=== PATIENT | male | born 1950 | race Hispanic/Latino ===

== ENCOUNTER 2018-07-13 22:10 | Observation (INO) | payer MEDICARE, OTHER ==
[2018-07-13] MEDS ORDERED: Morphine 4 mg/ml ISec IVP STA (22:36)
[2018-07-13] MEDS ORDERED: Sodium Chloride 0.9% 1,000 ML IV STA (22:36)
[2018-07-13] MEDS ORDERED: Pantoprazole 40 MG in Sodium Chloride 0.9% 100 ML IV STA (22:36)
--- NOTE | 2018-07-13 22:36 | ED PDOC ---
Arrival/HPI - General Chief Complaint: Abdominal Pain Time Seen by Provider: 07/13/18 22:20 Historian: Patient - History of Present Illness Narrative History of Present Illness (Text): 07/13/18 22:35 67 year old male, whose past medical history includes hypertension, presents to the emergency department complaining of epigastric pain that radiates down to lower abdomen and back. Patient reports no appetite, but denies any fever, chills, chest pain, shortness of breath, nausea, vomiting, diarrhea, urinary symptoms, neck pain, headache, dizziness, or any other complaints. PMD: Dr. Hill Symptom Onset: Gradual Symptom Course: Unchanged Activities at Onset: Light Context: Home Past Medical History - Provider Review Nursing Documentation Reviewed: Yes - Infectious Disease Hx of Infectious Diseases: None - Tetanus Immunization Tetanus Immunization: Unknown - Cardiac Hx Cardiac Disorders: Yes Hx Hypertension: Yes - Pulmonary Hx Respiratory Disorders: Yes Hx Pneumonia: Yes (11-19-15) - Neurological Hx Neurological Disorder: Yes (SYNCOPE) - HEENT Hx HEENT Disorder: (WEARS RX GLASSES) Other/Comment: DEVIATED SEPTUM WITH SURGERY.H/O ORBITAL FX RIGHT WITH WIRE - Musculoskeletal/Rheumatological Hx Falls: No Other/Comment: inflammation in hip and leg - Gastrointestinal Hx Gastrointestinal Disorders: Yes (CONSTIPATION) Other/Comment: Ileus-EXPLORATORY LAP HAD RUPTURED LOWER BOWEL ?,APPENDECTOMY, - Psychiatric Hx Substance Use: No - Surgical History Hx Appendectomy: Yes Other/Comment: hx of nasal , rt orbital fracture - Anesthesia Hx Anesthesia: Yes Hx Anesthesia Reactions: No Hx Malignant Hyperthermia: No - Suicidal Assessment Feels Threatened In Home Enviroment: No Family/Social History - Physician Review Nursing Documentation Reviewed: Yes Family/Social History: No Known Family HX Smoking Status: Current Some Days Smoker Hx Alcohol Use: Yes Frequency of alcohol use: Socially Hx Substance Use: No Hx Substance Use Treatment: No Allergies/Home Meds Allergies/Adverse Reactions: Allergies boswell Allergy (Verified 11/19/15 16:40) ANGIOEDEMA NECTARINE Allergy (Uncoded 11/19/15 16:39) ANGIOEDEMA Home Medications: Home Meds Medication Instructions Recorded Confirmed Losartan [Cozaar] 50 mg PO DAILY 07/13/18 07/13/18 Review of Systems - Physician Review All systems were reviewed & negative as marked: Yes - Review of Systems Constitutional: absent: Fevers, Other (Chills) Respiratory: absent: SOB Cardiovascular: absent: Chest Pain Gastrointestinal: Abdominal Pain, Appetite Changes. absent: Nausea, Vomiting Genitourinary Male: absent: Dysuria, Frequency, Hematuria Musculoskeletal: Back Pain. absent: Neck Pain Neurological: absent: Headache, Dizziness Physical Exam Vital Signs Reviewed: Yes Vital Signs Temp Pulse Resp BP Pulse Ox 07/13/18 22:14 98.5 F 112 H 19 165/92 H 98 Temperature: Afebrile Blood Pressure: Hypertensive Pulse: Tachycardic Respiratory Rate: Normal Appearance: Positive for: Well-Appearing, Non-Toxic, Comfortable Pain Distress: None Mental Status: Positive for: Alert and Oriented X 3 - Systems Exam Head: Present: Atraumatic, Normocephalic Pupils: Present: PERRL Extroacular Muscles: Present: EOMI Conjunctiva: Present: Normal Mouth: Present: Moist Mucous Membranes Neck: Present: Normal Range of Motion Respiratory/Chest: Present: Clear to Auscultation, Good Air Exchange. No: Respiratory Distress, Accessory Muscle Use Cardiovascular: Present: Regular Rate and Rhythm, Normal S1, S2. No: Murmurs Abdomen: Present: Other (Distant bowel sounds). No: Tenderness, Distention, Peritoneal Signs Back: Present: Normal Inspection Upper Extremity: Present: Normal Inspection. No: Cyanosis, Edema Lower Extremity: Present: Normal Inspection. No: Edema Neurological: Present: GCS=15, CN II-XII Intact, Speech Normal Skin: Present: Warm, Dry, Normal Color. No: Rashes Psychiatric: Present: Alert, Oriented x 3, Normal Insight, Normal Concentration Medical Decision Making ED Course and Treatment: 07/13/18 22:35 Impression: 67 year old male presents complaining of epigastric abdominal pain that radiates down to the lower abdomen and back with no appetite. Plan: -- CT Abd & Pelvis IV Contrast -- EKG -- labs -- Morphine, Protonix Inj, IV Fluids, Zofran Inj -- UA -- reassess and disposition Progress Notes: 07/13/18 23:09 EKG shows NSR at 61 BPM. Normal EKG. Interpreted by me. EXAM:CT Abdomen and Pelvis Without Intravenous Contrast Dictated and Authenticated by: Simeon Gomez MD 07/14/2018 2:10 AM IMPRESSION: 1. Large full distended urinary bladder measuring up to 16 cm in height. No urinary bladder wall thickening. 2. Large cystic structures posterior to the urinary bladder measures up to 10 cm on right and 6 cm the left. 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 No hydroureter or obstructive uropathy changes 07/14/18 02:[address] Hill who is aware and agrees with the plan. Accepts patient into his service. - Lab Interpretations Lab Results: 07/13/18 23:04 07/13/18 23:04 Lab Results 07/13/18 23:04: Sodium 135, Potassium 3.8, Chloride 99, Carbon Dioxide 26, Anion Gap 14, BUN 23 H, Creatinine 1.6 H, Est GFR ( Amer) 52, Est GFR ( Non-Af Amer) 43, Random Glucose 92, Calcium 9.1, Total Bilirubin 0.6, AST 148 H , ALT 44, Alkaline Phosphatase 66, Lactate Dehydrogenase 500, Total Creatine Kinase 47, Troponin I < 0.01, Total Protein 6.3, Albumin 3.9, Globulin 2.4, Albumin/Globulin Ratio 1.6, Amylase 164 H, Lipase 415 H 07/13/18 23:04: PT 9.9, INR 0.87, APTT 29.0 07/13/18 23:04: WBC 8.3 D, RBC 3.76, Hgb 13.4 L, Hct 37.9 L, MCV 100.8, MCH 35.6 H, MCHC 35.4, RDW 12.3, Plt Count 286, MPV 9.3, Gran % 66.0, Lymph % (Auto ) 22.7, [place]idan % (Auto) 10.0 H, Eos % (Auto) 1.2 L, Baso % (Auto) 0.1, Gran # 5.46 , Lymph # (Auto) 1.9, [place] # (Auto) 0.8 H, Eos # (Auto) 0.1, Baso # (Auto) 0.01 I have reviewed the lab results: Yes - RAD Interpretation Radiology Orders: 07/13/18 23:51 ABD & PELVIS W/O PO OR IV CONT [CT] Stat - EKG Interpretation Interpreted by ED Physician: Yes Type: 12 lead EKG - Medication Orders Current Medication Orders: Sodium Chloride (Sodium Chloride 0.9%) 1,000 mls @ 100 mls/hr IV .Q10H STA Stop: 07/14/18 08:35 Last Admin: 07/13/18 23:08 Dose: 100 mls/hr eMAR Start Stop Document 07/13/18 23:08 RD (Rec: 07/13/18 23:12 RD [id number]) Intravenous Solution Start Date 07/13/18 Start Time 23:08 Discontinued Medications Morphine Sulfate (Morphine) 4 mg IVP STAT STA Stop: 07/13/18 22:37 Last Admin: 07/13/18 23:13 Dose: 4 mg MAR Pain Assessment Document 07/13/18 23:13 RD (Rec: 07/13/18 23:13 RD [id number]) Pain Reassessment Is this a pain reassessment? No Sleep Is patient sleeping during reassessment? No Presence of Pain Presence of Pain Yes Location Pain Location Body Site Abdomen IVP Administration Document 07/13/18 23:13 RD (Rec: 07/13/18 23:13 RD [id number]) Charges for Administration # of IVP Administrations 1 Ondansetron HCl (Zofran Inj) 4 mg IVP STAT STA Stop: 07/13/18 22:37 Last Admin: 07/13/18 23:10 Dose: 4 mg IVP Administration Document 07/13/18 23:10 RD (Rec: 07/13/18 23:13 RD [id number]) Charges for Administration # of IVP Administrations 1 Pantoprazole Sodium (Protonix Inj) 40 mg IVP ONCE STA Stop: 07/13/18 22:38 Last Admin: 07/13/18 23:08 Dose: 40 mg IVP Administration Document 07/13/18 23:08 RD (Rec: 07/13/18 23:12 RD [id number]) Charges for Administration # of IVP Administrations 1 - Scribe Statement The provider has reviewed the documentation as recorded by the Philip Miller Provider Scribe Attestation: All medical record entries made by the Philip were at my direction and personally dictated by me. I have reviewed the chart and agree that the record accurately reflects my personal performance of the history, physical exam, medical decision making, and the department course for this patient. I have also personally directed, reviewed, and agree with the discharge instructions and disposition. Disposition/Present on Arrival - Present on Arrival History of DVT/PE: No History of Uncontrolled Diabetes: No Urinary Catheter: No History of Decub. Ulcer: No History Surgical Site Infection Following: None - Disposition Forms: [employer] (Yakut)
[2018-07-13 23:23] LABS: BASO # 0.01 K/mm3 (0.0-2.0); BASO % 0.1 % (0.0-3.0); EOS # 0.1 (0.0-0.7); EOS % 1.2 % (1.5-5.0); GRAN # 5.46 (1.4-6.5); HEMOGLOBIN 13.4 g/dL (14.0-18.0); LYMPH # 1.9 (1.2-3.4); LYMPH % 22.7 % (22.0-35.0); MEAN CELL VOLUME 100.8 fl (80.0-105.0); MEAN CORPUSCULAR HEMOGLOBIN 35.6 pg (25.0-35.0); MEAN CORPUSCULAR HGB CONC 35.4 g/dl (31.0-37.0); MEAN PLATELET VOLUME 9.3 fl (7.0-11.0); MONO # 0.8 (0.1-0.6); RBC 3.76 10^6/uL (3.5-6.1); RED CELL DISTRIBUTION WIDTH 12.3 % (11.5-14.5); WHITE BLOOD COUNT 8.3 10^3/ul (4.5-11.0)
[2018-07-13 23:30] LABS: INR 0.87
[2018-07-13 23:38] LABS: PROTHROMBIN TIME 9.9 SECONDS (9.4-12.5)
[2018-07-13 23:47] LABS: ALB/GLOB RATIO 1.6 (1.1-1.8); ALBUMIN 3.9 g/dL (3.0-4.8); ALT/SGPT 44 U/L (7-56); AMYLASE 164 U/L (35-125); AST/SGOT 148 U/L (17-59); BLOOD UREA NITROGEN 23 mg/dL (7-21); CALCIUM 9.1 mg/dL (8.4-10.5); GFR NON-AFRICAN AMERICAN 43; LIPASE 415 U/L (23-300)
[2018-07-13 23:58] LABS: TROPONIN I < 0.01 ng/mL
[2018-07-14] MEDS ORDERED: Sodium Chloride 0.9% 1,000 ML IV STA (02:33)
[2018-07-14 03:38] LABS: URINE BILIRUBIN NEGATIVE (NEGATIVE); URINE BLOOD LARGE (NEGATIVE); URINE GLUCOSE (UA) NEGATIVE (NEGATIVE); URINE LEUKOCYTE ESTERASE NEGATIVE Leu/uL (NEGATIVE); URINE PROTEIN NEGATIVE mg/dL (<30 mg/dL); URINE UROBILINOGEN 0.2 E.U./dL (<1 E.U./dL)
[2018-07-14 03:39] LABS: URINE APPEARANCE CLEAR (CLEAR); URINE COLOR YELLOW (YELLOW)
[2018-07-14 03:49] LABS: URINE WBC 0 - 2 /hpf (0-6)
[2018-07-14 03:50] LABS: URINE EPITHELIAL CELLS 0 - 2 /hpf (0-5); URINE HYALINE CAST 0 - 2 /hpf
[2018-07-14 06:17] VITALS: BP 157/94; RESP 22; TEMP 99.4; BMI 25.5
[2018-07-14 07:55] VITALS: PULSE 122; O2SAT 97
--- NOTE | 2018-07-14 08:03 | CT ---
EXAM: CT Abdomen and Pelvis Without Intravenous Contrast CLINICAL HISTORY: 67 years old, male; Pain; Abdominal pain; Generalized; Prior surgery; Surgery date: 6+ months; Surgery type: HX appendectomy, HX abdominal surgery for volvulus, HX rt inguinal hernia surgery; Additional info: Abd pain TECHNIQUE: Axial computed tomography images of the abdomen and pelvis without intravenous contrast. All CT scans at this facility use at least one of these dose optimization techniques: automated exposure control; mA and/or kV adjustment per patient size (includes targeted exams where dose is matched to clinical indication); or iterative reconstruction. Coronal and sagittal reformatted images were created and reviewed. COMPARISON: No relevant prior studies available. FINDINGS: Lung bases: Small linear subsegmental atelectatic scar markings lung bases. ABDOMEN: Liver: No mass. Gallbladder and bile ducts: Moderate distention of the gallbladder measuring up to 12 cm in length. No calcified stones. No ductal dilation. Pancreas: No ductal dilation. Spleen: No splenomegaly. Adrenals: No mass. Kidneys and ureters: No obstructing stones. No hydronephrosis. Stomach and bowel: Few scattered diverticuli are seen in the in the ascending colon and the proximal descending colon.No pericolonic stranding is seen to suggest diverticulits. PELVIS: Appendix: Appendectomy. Bladder: Large full distended urinary bladder measuring up to 16 cm in height. No urinary bladder wall thickening. Cystic structures are seen posterior to urine or bladder. The right posterior bladder cystic structure measures 6 x 5 x 10 cm. The left posterior bladder cystic structure measures 4 x 3 x 6 cm. Reproductive: Unremarkable as visualized. ABDOMEN and PELVIS: Intraperitoneal space: No free air. No significant fluid collection. Bones/joints: No acute fracture. No dislocation. Soft tissues: No radiopaque foreign body. Vasculature: No aortic aneurysm. Lymph nodes: No enlarged lymph nodes. IMPRESSION: 1. Large full distended urinary bladder measuring up to 16 cm in height. No urinary bladder wall thickening. 2. Large cystic structures posterior to the urinary bladder measures up to 10 cm on right and 6 cm the left. 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 No hydroureter or obstructive uropathy changes.
[2018-07-14] MEDS ORDERED: cefTRIAXone 1 gm 1 GM/100 ML BAG IVPB SCH (10:00)
--- NOTE | 2018-07-14 10:14 | HP ---
HISTORY OF PRESENT ILLNESS: A 68-year-old white male, history of COPD, hypertension. The patient was admitted with abdominal pain, was found to have obstructive uropathy with a markedly distended bladder. A Castro catheter was inserted in the ER. 1600 mL of urine were drained. The patient is afebrile. He is status post GreenLight laser approximately 1 year ago. The patient also had some shaking chills this morning. He will be given a dose of Rocephin. He will be put on p.o. antibiotics. At home, he is going to be switched to a leg bag and will be sending him back to his urologist, Dr. Ling in [place] some time this week. PHYSICAL EXAMINATION: GENERAL: Physical examination shows a well-developed, well-nourished while male, in no apparent distress he does have a Castro catheter draining clear urine. CHEST: Clear to auscultation and percussion. HEART: Regular sinus rhythm. VITAL SIGNS: Stable. Temperature is 99.4. LABORATORY DATA: White count was 8.3. His urinalysis on admission showed a large amount of blood, but negative for nitrites and leukocytes. IMPRESSION: Obstructive uropathy, possible acute cystitis in a 68-year-old white male. Justin Hill MD
--- NOTE | 2018-07-14 15:23 | CARD ---
APPROVED REPORT Date of service: 07/13/2018 EKG Measurement Heart [id number] <Conclusion> Normal sinus rhythm Normal ECG
== END 2018-07-14 12:44 | disposition home or self-care (01) ==
LOC: ED 22:10 → ERH 07-14 02:30 → 3RNO 07-14 03:37
PROVIDERS: ADMIT Internal Medicine; ATTEND Internal Medicine
DX: N13.9 Obstructive and reflux uropathy, unspecified (principal); J44.9 Chronic obstructive pulmonary disease, unspecified; I10 Essential (primary) hypertension; Z87.01 Personal history of pneumonia (recurrent); Z90.49 Acquired absence of other specified parts of digestive tract
CPT/HCPCS: 74176; 80053; 81001; 82150; 82550; 83615; 83690; 84484; 85025; 85610; 85730; 93005; 96365; 96375; 99284; C9113; G0378; J0696; J2270; J2405; J7030